=== PATIENT | female | born 1960 | race Caucasian/White ===

== ENCOUNTER → 2018-10-09 15:42 | Outpatient (CLI) | payer OTHER, SELFPAY | PROVIDERS: Family Provider Family Medicine; PCP Family Medicine; Referring Provider Otolaryngology Otolaryngology/Facial Plastic Surgery; Visit Provider Otolaryngology Otolaryngology/Facial Plastic Surgery | DX: J32.9 Chronic sinusitis, unspecified (principal) | CPT/HCPCS: 87070; 87205 ==

== ENCOUNTER → 2019-08-05 11:29 | Outpatient (CLI) | payer OTHER, SELFPAY ==
--- NOTE | 2019-08-05 11:36 | RAD_ITS ---
STUDY: X-RAY CHEST REASON FOR EXAM: Female, 59 years old. Copy TECHNIQUE: Frontal and lateral views of the chest COMPARISON: None. FINDINGS: The lungs are clear. There are no pleural effusions. There is no pneumothorax. The heart is normal in size. The visualized osseous structures are within normal limits. RAD/Chest PA and Lateral IMPRESSION: No acute thoracic pathology. Electronically Signed: Bayron Gilmore, at 17:29 EST Tel , Service support ,
== END ==
PROVIDERS: Family Provider Family Medicine; PCP Family Medicine; Referring Provider Otolaryngology Otolaryngology/Facial Plastic Surgery; Visit Provider Otolaryngology Otolaryngology/Facial Plastic Surgery
DX: R05 Cough (principal)
CPT/HCPCS: 71046

== ENCOUNTER → 2021-08-26 15:21 | Outpatient (CLI) | payer SELFPAY | PROVIDERS: PCP Family Medicine; Visit Provider Otolaryngology Otolaryngology/Facial Plastic Surgery | DX: Z11.59 Encounter for screening for other viral diseases (principal) | CPT/HCPCS: 87635; U0005; U0003 ==

== ENCOUNTER → 2024-11-21 | Outpatient (CLI) | payer SELFPAY ==
--- NOTE | 2024-11-21 12:34 | CT_ITS ---
PROCEDURE: CT ABDOMEN WITHOUT CONTRAST AND CT ABDOMEN/PELVIS WITH CONTRAST ([id number]), 11/21/2024 REASON FOR EXAM: ABD PAIN, ACUTE CYSITIS WITH HEMATURIA TECHNIQUE: CT abdomen was performed without IV contrast. Subsequently, CT abdomen and pelvis was performed with IV contrast. Multiplanar reformats were generated. CONTRAST: [id number] VOLUME: 96mL RADIATION DOSE SUMMARY: CTDlvol: 9.97 mGy DLP: 1025.44 mGycm One or more dose reduction techniques were used (e.g., Automated exposure control, adjustment of the mA and/or kV according to patient size, use of iterative reconstruction technique). COMPARISON: None FINDINGS: Lung bases: Mild atelectasis/scarring. Liver: Likely focal steatosis along the anterior falciform.. Tiny hypodensity in the RIGHT hepatic dome too small to characterize likely cyst/hemangioma in the absence of known malignancy. Spleen: Unremarkable. Gallbladder: Cholecystectomy. Dilatation of the CBD to 13 mm. Mild central intrahepatic biliary dilatation. Pancreas: Unremarkable. Adrenals: Unremarkable. Kidneys: Mild cortical scarring in the posterior LEFT upper pole. Small LEFT renal cyst. Bowel: Fluid distended but technically nondilated small bowel loops. No convincing inflammation or reina bowel dilatation. Appendix not identified, however there are no convincing inflammatory changes in the region. Lymph nodes: Unremarkable. Vasculature: Mild atherosclerosis. Peritoneum: Unremarkable. Bladder: Underdistended across both phases of imaging and suboptimally evaluated; grossly unremarkable. Reproductive Organs: Hysterectomy. Body Wall: Trace to mild nonspecific subcutaneous stranding in the infraumbilical anterior abdominal wall. Bones: Mild spondylosis.. CT/CT Abd/Pelvis W/WO Contrast IMPRESSION: 1. No clear etiology for reported hematuria identified. Note this should not p reclude further clinical follow-up such as cystoscopy, as clinically indicated. 2. Nonspecific mild fluid distended small bowel loops without reina dilatation or convincing inflammation. Correlate for minimal enteritis/ileus. 3. Cholecystectomy with biliary dilatation which could be related to post candy cystectomy effect. Correlate with serum bilirubin. 4. Appendix not identified, however there are no convincing inflammatory change s in the region. 5. Additional description as above. Reading Location: [id number]
== END | disposition home or self-care (01) ==
LOC: CT 12:31
PROVIDERS: PCP Family Medicine; Referring Provider Urology; Visit Provider Urology
DX: N30.01 Acute cystitis with hematuria (principal); R10.84 Generalized abdominal pain
CPT/HCPCS: 74178; Q9967

== ENCOUNTER → 2025-01-30 | Outpatient (CLI) | payer SELFPAY ==
--- NOTE | 2025-01-30 15:33 | MRI_ITS ---
PROCEDURE: BRAIN W/WO CONTRAST 01/30/2025 REASON FOR EXAM: STROKE LIKE SYMPTOMS TECHNIQUE: Routine brain MRI without and with intravenous contrast. Multiplanar and multisequence images were obtained. CONTRAST: Clariscan VOLUME: 10 mL Gauge IV COMPARISON: None. FINDINGS: Brain: Mild cerebral atrophy and chronic periventricular white matter disease. Partially empty sella turcica. Diffusion: No evidence of acute infarction. Ventricles: Consistent with the overall degree of cerebral atrophy. No abnormal intracranial enhancement. Sinuses: Clear. Mastoids: Clear. MRI/Brain W/WO Contrast IMPRESSION: No acute intracranial abnormality. Reading Location: [place] [id number]
== END | disposition home or self-care (01) ==
PROVIDERS: PCP Family Medicine; Referring Provider Physician Assistant; Visit Provider Physician Assistant
DX: R29.90 Unspecified symptoms and signs involving the nervous system (principal)
CPT/HCPCS: 70553; A9575